=== PATIENT | male | born 1950 | race Two or more races ===

== ENCOUNTER 2023-06-29 13:27 | Emergency (ER) | payer OTHER ==
[~2023-06-29] VITALS: Ht 172.7 cm; Wt 86.2 kg
[2023-06-29] MEDS ORDERED: TENORMIN25 MG (13:48)
[2023-06-29] MEDS ORDERED: SYNTHROID150 MCG PO (13:48)
[2023-06-29] MEDS ORDERED: VITAMIN D350 MCG PO (13:49)
[2023-06-29] MEDS ORDERED: KETOROLAC TROMETHAMINE 60 MG VIAL IM STA (19:00)
== END 2023-06-29 20:12 | disposition home or self-care (01) ==
LOC: ER 13:27
DX: S52.591A Other fractures of lower end of right radius, initial encounter for closed fracture (principal); W19.XXXA Unspecified fall, initial encounter; Y93.89 Activity, other specified; Y92.018 Other place in single-family (private) house as the place of occurrence of the external cause; Y99.9 Unspecified external cause status; I10 Essential (primary) hypertension; E03.9 Hypothyroidism, unspecified
CPT/HCPCS: 29126; 73100; 96372; 99284; J1885